=== PATIENT | male | born 1990 | race Caucasian/White ===

== ENCOUNTER 2017-03-18 21:38 | Emergency (ER) | payer MEDICAID ==
[~2017-03-18] VITALS: Ht 167.6 cm; Wt 76.5 kg
[2017-03-18 21:41] VITALS: Ht 167.6 cm; Wt 76.5 kg
--- NOTE | 2017-03-18 22:29 | ERA ---
ER Documentation Chief Complaint Date/Time DATE: 03/18/17 TIME: 22:25 Chief Complaint left knee pain x 1 month denies trauma HPI Otherwise healthy 26-year-old male presents with the chief complaints of left knee pain at 1-3 months. Denies trauma. Has not taken any medications to relieve the symptoms. Denies swelling, fever, chills, numbness, tingling. Patient denies any loss of motion. Able to ambulate. No aggravating or alleviating factors. Patient has no other complaints and describes no other associated manifestations. Nursing notes have been reviewed and are consistent with history given. ROS All systems reviewed and are negative except as per history of present illness. Medications Home Meds No Active Prescriptions or Reported Meds Allergies Allergies: Coded Allergies: No Known Allergies (Verified Allergy, Mild, 10/22/13) PMhx/Soc History of Surgery: No Anesthesia Reaction: No Hx Neurological Disorder: No Hx Respiratory Disorders: No Hx Cardiac Disorders: No Hx Psychiatric Problems: No Hx Miscellaneous Medical Probl: No Hx Alcohol Use: No Hx Substance Use: No Hx Tobacco Use: No Physical Exam Vitals Vital Signs Date Time Temp Pulse Resp B/P Pulse Ox O2 Delivery O2 Flow Rate FiO2 03/18/17 21:41 97.7 80 20 121/70 98 Physical Exam Const: Well-appearing 26-year-old male in no acute distress Head: Atraumatic Eyes: Normal Conjunctiva ENT: Normal External Ears, Nose and Mouth. Neck: Full range of motion..~ No meningismus. Resp: Clear to auscultation bilaterally Cardio: Regular rate and rhythm, no murmurs Abd: Soft, non tender, non distended. Normal bowel sounds Skin: No petechiae or rashes Back: No midline or flank tenderness Ext: Positive apprehension test of the left patella. Trish's test unremarkable. Anterior drawer test unreliable. Posterior drawer intact. Negative Heena's. No laxity with valgus or varus stress. Neurovascularly intact bilaterally. Cap refill less than 2 seconds.No cyanosis, or edema Neur: Awake and alert Psych: Normal Mood and Affect Procedures/MDM Otherwise healthy 26-year-old male presenting with a chief complaint of left knee pain as described in history and physical examination. Patient refused pain medications in the emergency department. X-ray of the left knee was obtained. X-ray was read by the radiologist given the following impression: Normal x-ray of the left knee. At this time a very little suspicion for bony pathology or neurovascular compromise. Most likely diagnosis is knee pain of uncertain etiology versus patellofemoral syndrome. I am unable to rule out soft tissue injuries at this time. Have recommended follow-up with orthopedics. Orthopedic list has been given to patient. No need for crutches or other assistive devices at this time. I have spoke with the patient regarding their condition and future management. They have verbally responded that they understand their status and treatment plan. The patients vitals are stable, and their current condition is appropriate for discharge. The patient will be given discharge instructions with return precautions. Departure Diagnosis: Primary Impression: Knee injury Qualified Code: S89.92XA - Injury of left knee, initial encounter Additional Impression: Knee pain Qualified Code: M25.562 - Chronic pain of left knee Additional Instructions: Follow up with your PCP within the next 1-3 days for a more thorough evaluation and a possible referral to a specialist. Orthopedic list has also been given to you in case you are unable to follow-up with PCP. Return the the emergency department immediately if symptoms worsen or change. If you have any questions regarding medications, ask your pharmacist or us before you leave. If any adverse reactions occur while taking your medications, discontinue the treatment and return to the emergency department immediately. Take your medications as directed, and complete the entire course of treatment. JASON MORALES PA-C Mar 18, 2017 22:29
--- NOTE | 2017-03-18 23:30 | RADRPT ---
PROCEDURE: Left knee x-ray CLINICAL INDICATION: Left knee pain TECHNIQUE: AP, lateral and oblique views of the left knee were obtained. COMPARISON: None FINDINGS: There is normal mineralization. No acute fracture or dislocation is seen. There are no significant degenerative changes. There is no joint effusion. There is no significant soft tissue swelling. IMPRESSION: Normal x-ray of the left knee. RPTAT: [facility] Physician Derek Date Time Electronically viewed and signed by Jacob Cuenca Physician on 03/18/2017 23:30 RS/
== END 2017-03-18 23:48 | disposition home or self-care (01) ==
LOC: FTE 21:38
DX: S89.92XA Unspecified injury of left lower leg, initial encounter (principal); X58.XXXA Exposure to other specified factors, initial encounter; Y92.9 Unspecified place or not applicable
CPT/HCPCS: 73562; Z7502